=== PATIENT | female | born 1935 | race Caucasian/White ===

== ENCOUNTER 2016-06-03 11:27 | Inpatient (IN) | payer MEDICARE, BC ==
[2016-06-03 11:53] LABS: AUTOMATED BASOPHIL 0.2 % (0-2); AUTOMATED LYMPH 15.7 % (17-44); AUTOMATED NEUTROPHIL 79.1 % (45-76); MPV 7.3 fL (7.4-10.4)
[2016-06-03 12:08] LABS: PARTIAL THROMB. TIME 26.6 SEC (22-35); PT-INR 1.1
[2016-06-03 12:22] LABS: BLOOD UREA NITROGEN 10 MG/DL (7-17); CALCULATED OSMOLALITY 276 MOs/Kg (270-290); CHLORIDE 105 mEq/L (98-107); GLUCOSE 141 MG/DL (70-99); SODIUM LEVEL 143 mEq/L (137-146); TOTAL PROTEIN 7.5 G/DL (6.3-8.2)
--- NOTE | 2016-06-03 12:29 | DIRPT ---
CLINICAL DATA: Shortness of breath for 2 days and cough EXAM: CHEST 2 VIEW COMPARISON: Chest radiograph and chest CT December 04, 2011 FINDINGS: There is slight scarring in the right base region. There is no edema or consolidation. Heart is borderline enlarged with pulmonary vascularity within normal limits. There is a small hiatal hernia. There is atherosclerotic calcification throughout the aorta. There is degenerative change in the thoracic spine. IMPRESSION: No edema or consolidation. Slight scarring right base. Stable cardiac prominence. Hiatal hernia present. Electronically Signed By: Nawaf Marrufo III, M.D. On: 06/03/2016 12:27
--- NOTE | 2016-06-03 13:56 | EDPRACDOC ---
- General Information Chief Complaint: Dyspnea/Resp distress Stated Complaint: SENT FROM URGENT CARE - [facility] Time Seen by Provider: 06/03/16 13:55 Information Source: Patient Home Medications: Home Medications Azithromycin [Zithromax] 250 mg PO DAILY #6 tablet 06/03/16 CloNIDine (Antihypertensive) [Catapres-Tts] 1 patch TOP WEEKLY 06/03/16 Dexlansoprazole [Dexilant] 60 mg PO DAILY 06/03/16 Folic Acid/Mv,Fe,Other Min [One Daily For Women Tablet] 1 tab PO DAILY 06/03/16 Ipratropium/Albuterol Sulfate [Combivent Respimat Inhal [place]] 4 gm IH QID PRN # 2 aer.w.adap 06/03/16 Prednisone [Deltasone, Orasone] 20 mg PO DAILY #12 tab 06/03/16 Allergies/Adverse Reactions: Allergies Allergy/AdvReac Type Severity Reaction Status Date / Time Sulfa (Sulfonamide Allergy Intermediate Hives* Verified 06/03/16 11:38 Antibiotics) [Sulfa(Sulfonamide Antibiotics)] Penicillins Allergy Hives* Verified 06/03/16 11:38 - History of Present Illness Shortness of Breath: Moderate Relevant History: Reports: None Cough: Reports: Non-productive Rhinorrhea: Reports: Clear SOB Worsens with: Reports: Coughing, Lying Flat SOB Improves with: Reports: Sitting up, Rest Associated Signs and symptoms: Reports: Fever (LOW GRADE), Other (EDEMA). Denies: Nausea, Vomiting, Diarrhea ED Past Medical History - History Reviewed Yes Nurses notes reviewed and agree except as marked - Patient Medical History Cardiac History: Reports: Hypertension Psychological History: Denies: Depression Surgical History: Reports: Appendectomy, Tonsillectomy/Adnoidectomy - Social Medical History Smoking Status: Never smoker ETOH: None Substance Abuse: None Lives In: Home EDM Review of Systems - Review of Systems ROS Negative Except as Marked: Yes All systems reviewed and were negative except as marked - Physical Exam Constitutional: Alert (Awake), No apparent distress Oriented to: Time, Person, Place Last recorded Vital Signs: Last Vital Signs Temp 99.8 F 06/03/16 13:10 Pulse 99 06/03/16 13:52 Resp 20 06/03/16 13:52 BP 201/93 H 06/03/16 13:52 Pulse Ox 93 06/03/16 13:52 Oxygen Pulse Oxygen Saturation 93 O2 Device Room Air Oxygen Flow Rate Fraction of Inspired Oxygen ( FIO2) - HEENT Head: Normal ( normocephalic) Eye Exam: Normal (PERRL, EOMI, Sclera white) Oropharynx: Normal (Pharynx:Moist without exudate,Gums-no swelling) Tympanic Membrane: Normal ENT EAC: Normal TMJ: Normal Nose: No Symptoms Reported (septum midline) Neck: Normal (FROM, trachea at midline) - Respiratory/Cardiovascular Respiratory: Diminished, Rhonchi, Tachypnea (MILD). negative: Accessory Muscle Use, Retractions Cardiovascular: Normal (RRR without murmur, gallop or rub) - GI Auscultation: Normal (NABS) Palpation: Normal (Soft,No rebound or guarding, non distended) Tenderness: Non tender Taylor's Sign: Negative - Musculoskeletal Back: Normal (Non-Tender) Extremities: Pedal Edema (2+). negative: Clubbing, Cyanosis - Integumentary Skin: Normal, Warm, Dry Lymphatics: Normal (no adenopathy) - Neurologic Memory Impaired: Normal Motor Function: Normal (Normal tone, Pulses 2+ No cyanosis or edema, FROM) Cranial Nerve: Normal (CN II-X11 intact sensation, strength 5/5) Cerebellar: Normal Mood Description: Normal Thought: Coherent Perception: Normal ED SOB MDM - Re-evaluation Re-evaluation 3 Re-evaluation Time: 17:28 Re-evaluation: VERY COMFORTABLE, SO2 STILL 88-89% RA. Re-evaluation 4 Re-evaluation Time: 17:37 (STILL WHEEZING BUT FAIRLY COMFORTABLE,) Re-evaluation: INPATIENT VERSUS OUTPATIENT MANAGEMENT DISCUSSED WITH PATIENT AND HER , RISKS BENEFITS AND ALTERNATIVES WERE DISCUSSED THEY HAVE ELECTED FOR OUTPATIENT MANAGEMENT. WILL ARRANGE FOR HOME OXYGENATION. Temperature: 99.8 F (06/03/16 13:10) HR: 105 (06/03/16 17:22)RR: 20 (06/03/16 17 :22) BP: 156/77 (06/03/16 17:22)Pulse Ox: 86 (06/03/16 17:22) ROOM AIR PULSE OX BY MY EXAMINATION IS 86% ROOM AIR. - Results Result Diagrams: 06/03/16 11:40 06/03/16 11:40 Results: WBC 17.4 xk/uL (3.8-10.8) H 06/03/16 11:40 RBC 5.67 xM/uL (4.20-5.40) H 06/03/16 11:40 Hgb 15.5 g/dL (12.0-16.0) 06/03/16 11:40 Hct 47.4 % (36-47) H 06/03/16 11:40 MCV 84 fL (81-99) 06/03/16 11:40 MCH 27.4 pg (27-32) 06/03/16 11:40 MCHC 32.8 g/dl (33-36) L 06/03/16 11:40 RDW 14.6 % (11.5-14.5) H 06/03/16 11:40 Plt Count 235 xk/uL (130-400) 06/03/16 11:40 MPV 7.3 fL (7.4-10.4) L 06/03/16 11:40 Neut % (Auto) 79.1 % (45-76) H 06/03/16 11:40 Lymph % (Auto) 15.7 % (17-44) L 06/03/16 11:40 [place] % (Auto) 5.0 % (3-10) 06/03/16 11:40 Eos % (Auto) 0.0 % (0-5) 06/03/16 11:40 Baso % (Auto) 0.2 % (0-2) 06/03/16 11:40 Absolute Neuts (auto) 13.75 xk/uL (1.7-8.2) H 06/03/16 11:40 Absolute Lymphs (auto) 2.61 xk/uL (0.65-4.75) 06/03/16 11:40 PT 11.5 SEC (9.2-11.2) H 06/03/16 11:40 INR 1.1 06/03/16 11:40 APTT 26.6 SEC (22-35) 06/03/16 11:40 Sodium 143 mEq/L (137-146) 06/03/16 11:40 Potassium 4.0 mEq/L (3.5-5.1) 06/03/16 11:40 Chloride 105 mEq/L (98-107) 06/03/16 11:40 Carbon Dioxide 22 mMOL/L (22-33) 06/03/16 11:40 Anion Gap 20 mEq/L (8-16) H 06/03/16 11:40 BUN 10 MG/DL (7-17) 06/03/16 11:40 Creatinine 0.60 MG/DL (0.52-1.04) 06/03/16 11:40 Estimated GFR (MDRD) > 60 mL/min (>=60) 06/03/16 11:40 Glucose 141 MG/DL (70-99) H 06/03/16 11:40 Calculated Osmolality 276 MOs/Kg (270-290) 06/03/16 11:40 Calcium 10.0 MG/DL (8.4-10.2) 06/03/16 11:40 Total Bilirubin 0.9 MG/DL (0.2-1.3) 06/03/16 11:40 AST 20 IU/L (14-36) 06/03/16 11:40 ALT 33 IU/L (9-52) 06/03/16 11:40 Alkaline Phosphatase 99 IU/L (55-165) 06/03/16 11:40 Troponin I < 0.01 ng/mL (<.04) 06/03/16 11:40 Bbu-H-Ptnpwbkrysk Pept 469 pg/mL (0-1800) 06/03/16 11:40 Total Protein 7.5 G/DL (6.3-8.2) 06/03/16 11:40 Albumin 4.4 G/DL (3.5-5.0) 06/03/16 11:40 Lab Results 06/03/16 06/03/16 06/03/16 11:40 11:40 11:40 WBC 17.4 H RBC 5.67 H Hgb 15.5 Hct 47.4 H MCV 84 MCH 27.4 MCHC 32.8 L RDW 14.6 H Plt Count 235 MPV 7.3 L Neut % (Auto) 79.1 H Lymph % (Auto) 15.7 L [place] % (Auto) 5.0 Eos % (Auto) 0.0 Baso % (Auto) 0.2 Absolute Neuts (auto) 13.75 H Absolute Lymphs (auto) 2.61 PT 11.5 H INR 1.1 APTT 26.6 Sodium 143 Potassium 4.0 Chloride 105 Carbon Dioxide 22 Anion Gap 20 H BUN 10 Creatinine 0.60 Estimated GFR (MDRD) > 60 Glucose 141 H Calculated Osmolality 276 Calcium 10.0 Total Bilirubin 0.9 AST 20 ALT 33 Alkaline Phosphatase 99 Troponin I < 0.01 [id number]-[id number] Pept 469 Total Protein 7.5 Albumin 4.4 - EKG EKG #1 EKG Time: 11:44 -: Yes EKG interpreted by me Rate: bpm: 115 [place]: Normal Rhythm: ST Block: None Hypertrophy: None ST: Nonsp - Diagnostic Imaging Chest Image interpreted by: Radiologist Diagnostic Imaging Comments: Patient Name: MICHAEL FINK LOC: ED : 1935 AGE: 81 Order Date:06/03/16 Date of Service:08/15 Report # [id number] Ord Physician: Martha Felton MD Exam # [id number] Emergency Physician: Provider,ER Exam(s): [id number] RAD/DG CHEST 2V CLINICAL DATA: Shortness of breath for 2 days and cough EXAM: CHEST 2 VIEW COMPARISON: Chest radiograph and chest CT December 04, 2011 FINDINGS: There is slight scarring in the right base region. There is no edema or consolidation. Heart is borderline enlarged with pulmonary vascularity within normal limits. There is a small hiatal hernia. There is atherosclerotic calcification throughout the aorta. There is degenerative change in the thoracic spine. IMPRESSION: No edema or consolidation. Slight scarring right base. Stable cardiac prominence. Hiatal hernia present. Electronically Signed By: Nawaf Marrufo III, M.D. On: 06/03/2016 12:27 Electronically Signed By: Nawaf Marrufo III, MD Electronically Signed Date/Time: [id number] Dictate Date/Time: 06/03/16 1225 Technologist: Irene Crum Transcribed By: Lia Transcribed Date/Time: 06/03/16 1227 - Departure Disposition: Home Final Diagnosis: Acute bronchitis, Acute exacerbation of chronic obstructive airways disease, Hypoxia Hypertension Qualifiers: Hypertension type: other secondary hypertension Qualified Code(s): I15.8 - Other secondary hypertension Instructions: Chronic Hypertension (ED), Acute Bronchitis (ED), COPD (Chronic Obstructive Pulmonary Disease) (ED) Education/Counseling Given To: Patient, Family Member Education/Counseling Given Regarding: Diagnosis, Treatment, Prognosis Referrals: Piyush Pabon MD [Primary Care Provider] - One Week Prescriptions: Azithromycin [Zithromax] 250 mg PO DAILY #6 tablet Ipratropium/Albuterol Sulfate [Combivent Respimat Inhal [place]] 4 gm IH QID PRN # 2 aer.w.adap PRN Reason: Shortness Of Breath Prednisone [Deltasone, Orasone] 20 mg PO DAILY #12 tab
[2016-06-03] MEDS ORDERED: ENALAPRILAT 1.25 MG/ML VIAL IV ONE (13:58)
[2016-06-03] MEDS ORDERED: FUROSEMIDE 40 MG/4 ML VIAL IV ONE (14:01)
[2016-06-03] MEDS ORDERED: NITROGLYCERINE 2 % OINTMENT PACK TOP ONE (14:01)
[2016-06-03] MEDS ORDERED: Albuterol/Ipratropium Neb 3 ML NEB NEB ONE (16:18)
[2016-06-03] MEDS ORDERED: METHYLPREDNISOLONE SOD SUCC IV ONE (16:18)
[2016-06-03] MEDS ORDERED: NS IV ONE (16:18)
[2016-06-03 17:34] LABS: ABG Draw Site Left Radial; ABG Draw Tech SI; ALLEN'S TEST PASS; BEb 1.7 (+/- 2); TCO2 25.4 MMOL/L (23-27)
[2016-06-03] MEDS ORDERED: ALBUTEROL 6.7 GM MDI INH ONE (17:40)
[2016-06-03] MEDS ORDERED: AZITHROMYCIN 500 MG in D5W 250 ML IV ONE (18:21)
[2016-06-03] MEDS ORDERED: CEFTRIAXONE 1 GM in D5W 100 ML IV ONE (18:21)
[2016-06-03] MEDS ORDERED: Pharmacy Review for Metformin - IV Contrast Given SCH (19:00)
--- NOTE | 2016-06-03 19:03 | DIRPT ---
CLINICAL DATA: Dyspnea EXAM: CT ANGIOGRAPHY CHEST WITH CONTRAST TECHNIQUE: Multidetector CT imaging of the chest was performed using the standard protocol during bolus administration of intravenous contrast. Multiplanar CT image reconstructions and MIPs were obtained to evaluate the vascular anatomy. CONTRAST: 80 cc Isovue 370 COMPARISON: 12/04/2011 FINDINGS: There are no filling defects in the pulmonary arterial tree to suggest acute pulmonary thromboembolism. Atherosclerotic changes throughout the thoracic aorta are noted. Minimal coronary artery calcification. No abnormal mediastinal adenopathy. No pericardial effusion. There is prominent soft tissue surrounding a right lower lobe pulmonary artery branch on image 52 of series 3. The encompassing soft tissue measures up to 1.7 cm. Similar mildly prominent lymph nodes are present inferior to the left hilum on image 47. These findings are not significantly changed compare with the prior study. No pneumothorax. No pleural effusion. Low lung volumes with dependent atelectasis bilaterally. There are more confluent opacities at the posterior left lung base worrisome for patchy airspace disease. Moderate-sized hiatal hernia is noted. No vertebral compression deformity. Review of the MIP images confirms the above findings. IMPRESSION: No evidence of acute pulmonary thromboembolism. Patchy airspace opacities at the left lung base worrisome for an inflammatory process Mildly prominent lymph nodes in both inferior hilar regions are stable. Stability over 4 years supports benign etiology. Stable moderate hiatal hernia. Electronically Signed By: Sarmad Sun M.D. On: 06/03/2016 19:00
[2016-06-03] MEDS ORDERED: Albuterol/Ipratropium Neb 3 ML NEB NEB PRN (19:47)
[2016-06-03] MEDS ORDERED: ONDANSETRON HCL 4 MG/2 ML VIAL IV PRN (19:47)
--- NOTE | 2016-06-03 19:47 | HISTPHYS ---
- Chief Complaint Shortness of breath and fever - History of Present Illness This is a pleasant 81-year-old female who was being admitted to the hospital due to left lower lobe community-acquired pneumonia. She tells me that he has had shortness of breath for the last 5 or 6 days, which started with a sore throat that time. Weakness and shortness of breath has progressed, she started to develop cough a couple of days ago, it is productive of thick discolored sputum. Denies any chest pain. Subjective fevers and chills at home. No associated nausea, vomiting or abdominal pain. No diarrhea. No therapies prior to arrival. No aggravating or alleviating factors. - Medical History Cardiac History: Reports: Hypertension Psychological History: Denies: Depression - Surgical History Reports: Appendectomy, Tonsillectomy/Adnoidectomy - Medictions/Allergies Allergies Sulfa (Sulfonamide Antibiotics) [Sulfa(Sulfonamide Antibiotics)] Allergy ( Intermediate, Verified 06/03/16 11:38) Hives* Penicillins Allergy (Verified 06/03/16 11:38) Hives* Home Medications Azithromycin [Zithromax] 250 mg PO DAILY #6 tablet 06/03/16 CloNIDine (Antihypertensive) [Catapres-Tts] 1 patch TOP WEEKLY 06/03/16 Dexlansoprazole [Dexilant] 60 mg PO DAILY 06/03/16 Folic Acid/Mv,Fe,Other Min [One Daily For Women Tablet] 1 tab PO DAILY 06/03/16 Ipratropium/Albuterol Sulfate [Combivent Respimat Inhal [place]] 4 gm IH QID PRN # 2 aer.w.adap 06/03/16 Prednisone [Deltasone, Orasone] 20 mg PO DAILY #12 tab 06/03/16 - Social History Smoking Status: Never smoker - Review of Systems Yes All systems reviewed and were negative except as marked - Physical Exam Vital Signs: Initial Vitals Temperature 99.1 F 06/03/16 11:37 Pulse Rate 118 06/03/16 11:37 Respiratory Rate 22 06/03/16 11:37 Blood Pressure 203/100 H 06/03/16 11:37 Pulse Oxygen Saturation 96 06/03/16 11:37 Constitutional: Distress Oriented to: Time, Person, Place Exam: Tired appearing woman lying in a stretcher in the emergency department. - HEENT Head: Normal (normocephalic,atraumatic, trachea midline) Eye: Normal (EOMI, Sclera white) Oropharynx: Normal (moist) Nose: No Symptoms Reported (without discharge or bleeding) Respiratory: Diminished, Rales, Rhonchi. negative: Tachypnea, Wheezes Cardiovascular: Normal - GI Palpation: Normal (soft, non distended and nontender) - Musculoskeletal Extremities: Normal (normal tone, no cyanosis or edema) - Integumentary Skin: Normal (no rashes or lesions) - Focused CV Perfusion Exam Vital Signs: Last Vital Signs Temp 99.8 F 06/03/16 13:10 Pulse 105 06/03/16 17:22 Resp 20 06/03/16 17:22 BP 156/77 06/03/16 17:22 Pulse Ox 87 L 06/03/16 17:22 - Lab Results Laboratory Tests 06/03/16 06/03/16 06/03/16 11:40 11:40 17:30 WBC 17.4 H Hgb 15.5 pH 7.490 H pCO2 32.0 L pO2 58.0 L Potassium 4.0 BUN 10 Creatinine 0.60 - Diagnostic Findings CT CHEST: No evidence of acute pulmonary thromboembolism. Patchy airspace opacities at the left lung base worrisome for an inflammatory process Mildly prominent lymph nodes in both inferior hilar regions are stable. Stability over 4 years supports benign etiology. Stable moderate hiatal hernia. - Assessment (1) LLL pneumonia J18.1 - LOBAR PNEUMONIA, UNSPECIFIED ORGANISM Acute Community-acquired pneumonia. With hypoxia, significant cough and left lower lobe consolidation seen on CT scan of the chest this evening. Admit to the hospital to monitored floor. Treat with empiric IV azithromycin and Rocephin. Respiratory therapy has been consulted, supplemental oxygen as needed. Keep O2 sats above 90% in this woman with COPD. (2) Acute exacerbation of chronic obstructive airways disease J44.1 - CHRONIC OBSTRUCTIVE PULMONARY DISEASE W (ACUTE) EXACERBATION Acute Scheduled duo nebs and bronchodilators. P.r.n. albuterol. Steroid taper. (3) Hypertension I10 - ESSENTIAL (PRIMARY) HYPERTENSION Acute Qualifiers: Hypertension type: other secondary hypertension Qualified Code(s): I15.8 - Other secondary hypertension Continue home medications. Hypertensive, will add IV labetalol p.r.n. SBP over 160. (4) Hypoxia R09.02 - HYPOXEMIA Acute Due to community-acquired pneumonia and COPD. Treating as above.
[2016-06-03] MEDS ORDERED: LABETALOL 20 MG/4 ML SYRINGE IV PRN (19:49)
[2016-06-03] MEDS: ACETAMINOPHEN 325 MG/TAB TABLET PO PRN (21:50)
[2016-06-03] MEDS: ENOXAPARIN 40 MG/0.4 ML PFS SQ SCH (22:21)
[2016-06-03] MEDS ORDERED: Vaccine Screening Complete SCH (23:00)
[2016-06-04 05:32] LABS: MPV 7.9 fL (7.4-10.4)
[2016-06-04] MEDS: PANTOPRAZOLE 40 MG TAB PO SCH (05:37)
[2016-06-04 05:50] LABS: BLOOD UREA NITROGEN 12 MG/DL (7-17); CALCIUM 9.3 MG/DL (8.4-10.2); CALCULATED OSMOLALITY 275 MOs/Kg (270-290); CHLORIDE 103 mEq/L (98-107); GLUCOSE 176 MG/DL (70-99); SODIUM LEVEL 141 mEq/L (137-146)
[2016-06-04] MEDS ORDERED: MV FE OTHER MIN PO SCH (09:00)
[2016-06-04] MEDS ORDERED: Non-Formulary Medication ITEM (Dexlansoprazole [Dexilant] 60 MG) PO SCH (09:00)
[2016-06-04] MEDS ORDERED: [UNRECOGNIZED DRUG - OTHER] PO SCH (09:00)
[2016-06-04] MEDS ORDERED: FOLIC ACID PO SCH (09:00)
[2016-06-04] MEDS: VITAMINS, MULTIPLE CAP PO SCH (11:05)
[2016-06-04] MEDS ORDERED: CLONIDINE 0.1 MG TOP SCH (12:30)
[2016-06-04] MEDS ORDERED: DEXTROSE 25 GM/50 ML PFS IV PRN (15:20)
[2016-06-04] MEDS ORDERED: GLUCOSE (ORAL GEL) 15 GM TUBE PO PRN (15:20)
[2016-06-04] MEDS ORDERED: GLUCAGON 1 MG VIAL SQ PRN (15:20)
--- NOTE | 2016-06-04 15:23 | GENMEDPROG ---
Subjective Note: Patient in chair responsive follows commands, still short of breath with audible rhonchi some wheezes. Coughing producing fair amount thick brownish sputum no hemoptysis. Generally weak and tired. Notes Reviewed: Yes Events from last night noted and discussed with Clinical Staff Current Medication List: Reviewed Currently: Reports: Cough, Wheezing, PUCKETT, SOB, Sputum, Reflux Sx DVT Prophylaxis: Yes - Physical Examination Vital Signs and I&O: Last Vital Signs Temp 97.7 F 06/04/16 12:00 Pulse 85 06/04/16 15:17 Resp 18 06/04/16 12:00 BP 140/70 06/04/16 12:00 Pulse Ox 92 06/04/16 12:00 Oxygen Pulse Oxygen Saturation 92 O2 Device Nasal Cannula Oxygen Flow Rate 2 Fraction of Inspired Oxygen ( FIO2) Intake & Output 06/01/16 06/02/16 06/03/16 06/04/16 23:59 23:59 23:59 23:59 Intake Total 600 480 Output Total 500 550 Balance 100 -70 Patient's weight 61.144 kg 61.167 kg General: Alert, Oriented x3, Cooperative, No acute distress HEENT: Normal, PERRLA, EOMI, Anicteric Sclera Neck: Non-tender, Normal inspection, Limited range of motion Lymphatics: Normal Respiratory: Diminished, Rales, Rhonchi. negative: Tachypnea, Wheezes Cardiovascular: Regular rate, Normal S1, Normal S2, Murmurs GI: Normal bowel sounds, Soft, Non tender, No hepatospenomegaly, No masses Extremities/Musculoskeletal: Normal pulses, Edema, DJD Skin: Warm,Dry and Intact, No rashes, No breakdown, No significant lesion Neurological: Normal speech, Cranial nerves 3-12 NL Psych/Mental Status: Anxious Lab/DI/Studies Reviewed: Last Vital Signs Temp 97.7 F 06/04/16 12:00 Pulse 85 06/04/16 15:17 Resp 06/04/16 12:00 BP 140/70 06/04/16 12:00 Pulse Ox 92 06/04/16 12:00 06/04/16 05:00 06/04/16 05:00 Abnormal Lab Results 06/03/16 06/04/16 06/04/16 17:30 05:00 05:00 WBC 12.4 H pH 7.490 H pCO2 32.0 L pO2 58.0 L Glucose 176 H Last Vital Signs Temp 97.7 F 06/04/16 12:00 Pulse 85 06/04/16 15:17 Resp 18 06/04/16 12:00 BP 140/70 06/04/16 12:00 Pulse Ox 92 06/04/16 12:00 - Assessment (1) Respiratory insufficiency Acute R06.89 - OTHER ABNORMALITIES OF BREATHING Comment/Plan: Continue O2 nebs and pulmonary toilet, monitor pulmonary status (2) Acute exacerbation of chronic obstructive airways disease Acute J44.1 - CHRONIC OBSTRUCTIVE PULMONARY DISEASE W (ACUTE) EXACERBATION Comment/Plan: Continue nebulized bronchodilators, continue IV steroids. (3) Hypertension Acute I10 - ESSENTIAL (PRIMARY) HYPERTENSION Qualifiers: Hypertension type: other secondary hypertension Qualified Code(s): I15.8 - Other secondary hypertension Comment/Plan: BP under control. Continue home meds. (4) LLL pneumonia Acute J18.1 - LOBAR PNEUMONIA, UNSPECIFIED ORGANISM Comment/Plan: Continue IV antibiotics in the form of Rocephin and Zithromax.. Monitor cultures. (5) GERD (gastroesophageal reflux disease) Acute K21.9 - GASTRO-ESOPHAGEAL REFLUX DISEASE WITHOUT ESOPHAGITIS Qualifiers: Esophagitis presence: without esophagitis Qualified Code(s): K21.9 - Gastro -esophageal reflux disease without esophagitis Comment/Plan: Continue PPI Case Care Discussed with: Patient, Nursing Staff, Respiratory Therapy, Mass Communications Professor Education/Counseling Given To: Patient Education/Counseling Given Regarding: Diagnosis, Treatment, Prognosis, Follow Up Total Time: 50 min . Critical Care: No Code: 92417 (12+)
[2016-06-04] MEDS: ENOXAPARIN 40 MG/0.4 ML PFS SQ SCH (16:45)
[2016-06-04] MEDS: METHYLPREDNISOLONE 125 MG/2 ML VIAL IV SCH ×2 (16:45→21:18)
[2016-06-04] MEDS: CEFTRIAXONE 1 GM in D5W 100 ML IV SCH (16:45)
[2016-06-04] MEDS: REGULAR INSULIN 100 UNITS/ML - 3 ML VIAL SQ SCH ×2 (16:59→23:57)
[2016-06-04] MEDS: GUAIFENESIN 600 MG LA TAB PO SCH (19:51)
[2016-06-04] MEDS: AZITHROMYCIN 500 MG in D5W 250 ML IV SCH (19:51)
[2016-06-04] MEDS: Albuterol/Ipratropium Neb 3 ML NEB NEB SCH (19:57)
[2016-06-05] MEDS: Albuterol/Ipratropium Neb 3 ML NEB NEB SCH ×4 (02:12→20:35)
[2016-06-05 04:53] VITALS: BMI 24.5
[2016-06-05] MEDS: PANTOPRAZOLE 40 MG TAB PO SCH (05:07)
[2016-06-05] MEDS: METHYLPREDNISOLONE 125 MG/2 ML VIAL IV SCH ×2 (05:07→08:37)
[2016-06-05] MEDS: REGULAR INSULIN 100 UNITS/ML - 3 ML VIAL SQ SCH ×3 (05:14→16:50)
[2016-06-05 05:43] LABS: BLOOD UREA NITROGEN 19 MG/DL (7-17); CALCIUM 9.8 MG/DL (8.4-10.2); CALCULATED OSMOLALITY 282 MOs/Kg (270-290); CHLORIDE 107 mEq/L (98-107); GLUCOSE 144 MG/DL (70-99); SODIUM LEVEL 144 mEq/L (137-146)
[2016-06-05] MEDS: GUAIFENESIN 600 MG LA TAB PO SCH ×2 (08:37→21:41)
[2016-06-05] MEDS: VITAMINS, MULTIPLE CAP PO SCH (08:37)
[2016-06-05] MEDS ORDERED: hydrALAZINE 20 MG/ML VIAL IV PRN (09:44)
--- NOTE | 2016-06-05 09:48 | GENMEDPROG ---
Subjective Note: Patient in bed responsive follows commands, still coughing producing fair amount thick brownish sputum. denies any hemoptysis. Still weak tired and fatigued. Overall breathing better. Notes Reviewed: Yes Events from last night noted and discussed with Clinical Staff Current Medication List: Reviewed Currently: Reports: Cough, Wheezing, PUCKETT, SOB, Sputum, Reflux Sx DVT Prophylaxis: Yes - Physical Examination Vital Signs and I&O: Last Vital Signs Temp 97.6 F 06/05/16 07:50 Pulse 78 06/05/16 07:50 Resp 18 06/05/16 07:50 BP 169/83 06/05/16 07:50 Pulse Ox 98 06/05/16 08:52 Oxygen Pulse Oxygen Saturation 98 O2 Device Nasal Cannula Oxygen Flow Rate 2 Fraction of Inspired Oxygen ( FIO2) Intake & Output 06/02/16 06/03/16 06/04/16 06/05/16 23:59 23:59 23:59 23:59 Intake Total 600 720 Output Total 500 1350 500 Balance 100 -630 -500 Patient's weight 61.144 kg 61.167 kg 60.781 kg General: Alert, Oriented x3, Cooperative, No acute distress HEENT: Normal, PERRLA, EOMI, Anicteric Sclera Neck: Non-tender, Normal inspection, Limited range of motion Lymphatics: Normal Respiratory: Diminished, Rales, Rhonchi. negative: Tachypnea, Wheezes Cardiovascular: Regular rate, Normal S1, Normal S2, Murmurs GI: Normal bowel sounds, Soft, Non tender, No hepatospenomegaly, No masses Extremities/Musculoskeletal: Normal pulses, Edema, DJD Skin: Warm,Dry and Intact, No rashes, No breakdown, No significant lesion Neurological: Normal speech, Cranial nerves 3-12 NL Psych/Mental Status: Anxious Lab/DI/Studies Reviewed: Allergies Sulfa (Sulfonamide Antibiotics) [Sulfa(Sulfonamide Antibiotics)] Allergy ( Intermediate, Verified 06/03/16 11:38) Hives* Penicillins Allergy (Verified 06/03/16 11:38) Hives* 06/05/16 05:05 06/05/16 05:05 Abnormal Lab Results 06/04/16 06/04/16 06/04/16 16:27 20:41 23:55 WBC MCHC BUN Creatinine Glucose POC Capillary Glucose 225 H 256 H 214 H 06/05/16 06/05/16 06/05/16 05:05 05:05 05:14 WBC 17.9 H MCHC 32.9 L BUN 19 H Creatinine 0.50 L Glucose 144 H POC Capillary Glucose 130 H Last Vital Signs Temp 97.6 F 06/05/16 07:50 Pulse 78 06/05/16 07:50 Resp 18 06/05/16 07:50 BP 169/83 06/05/16 07:50 Pulse Ox 98 06/05/16 08:52 - Assessment (1) LLL pneumonia Acute J18.1 - LOBAR PNEUMONIA, UNSPECIFIED ORGANISM Comment/Plan: Continue IV antibiotics in the form of Rocephin and Zithromax.. Monitor cultures. Continue aggressive pulmonary toilet and mucolytics (2) Respiratory insufficiency Acute R06.89 - OTHER ABNORMALITIES OF BREATHING Comment/Plan: Continue O2 nebs and pulmonary toilet, monitor pulmonary status. Will wean off O2 as tolerated (3) Acute exacerbation of chronic obstructive airways disease Acute J44.1 - CHRONIC OBSTRUCTIVE PULMONARY DISEASE W (ACUTE) EXACERBATION Comment/Plan: Continue nebulized bronchodilators, continue IV steroids. Increase activity, wean off IV steroids (4) Hypertension Acute I10 - ESSENTIAL (PRIMARY) HYPERTENSION Qualifiers: Hypertension type: other secondary hypertension Qualified Code(s): I15.8 - Other secondary hypertension Comment/Plan: BP under control. Continue home meds. (5) GERD (gastroesophageal reflux disease) Acute K21.9 - GASTRO-ESOPHAGEAL REFLUX DISEASE WITHOUT ESOPHAGITIS Qualifiers: Esophagitis presence: without esophagitis Qualified Code(s): K21.9 - Gastro -esophageal reflux disease without esophagitis Comment/Plan: Continue PPI Case Care Discussed with: Patient, Family, Nursing Staff, Respiratory Therapy, Other Education/Counseling Given To: Patient Education/Counseling Given Regarding: Diagnosis, Treatment, Prognosis, Follow Up Total Time: 45 min . Critical Care: No Code: 75989 (12+)
[2016-06-05] MEDS: METHYLPREDNISOLONE 40 MG/1 ML VIAL IV SCH ×2 (13:56→20:15)
[2016-06-05] MEDS: ENOXAPARIN 40 MG/0.4 ML PFS SQ SCH (16:51)
[2016-06-05] MEDS: CEFTRIAXONE 1 GM in D5W 100 ML IV SCH (16:51)
[2016-06-05] MEDS: AZITHROMYCIN 500 MG in D5W 250 ML IV SCH (20:15)
[2016-06-06] MEDS: REGULAR INSULIN 100 UNITS/ML - 3 ML VIAL SQ SCH ×3 (00:13→12:37)
[2016-06-06] MEDS: METHYLPREDNISOLONE 40 MG/1 ML VIAL IV SCH ×2 (02:25→09:28)
[2016-06-06] MEDS: Albuterol/Ipratropium Neb 3 ML NEB NEB SCH ×3 (02:31→13:20)
[2016-06-06] MEDS: PANTOPRAZOLE 40 MG TAB PO SCH (05:54)
[2016-06-06] MEDS: ACETAMINOPHEN 325 MG/TAB TABLET PO PRN ×2 (05:54→12:28)
[2016-06-06 07:07] LABS: BLOOD UREA NITROGEN 16 MG/DL (7-17); CALCIUM 9.9 MG/DL (8.4-10.2); CALCULATED OSMOLALITY 281 MOs/Kg (270-290); CHLORIDE 107 mEq/L (98-107); GLUCOSE 146 MG/DL (70-99); SODIUM LEVEL 144 mEq/L (137-146)
[2016-06-06] MEDS: GUAIFENESIN 600 MG LA TAB PO SCH (09:28)
[2016-06-06] MEDS: VITAMINS, MULTIPLE CAP PO SCH (12:25)
[2016-06-06 13:23] VITALS: BP 159/75; PULSE 87; TEMP 97.6
--- NOTE | 2016-06-06 15:27 | PCM.DCS92 ---
- Final/Secondary Discharge Diagnosis (1) LLL pneumonia Acute J18.1 - LOBAR PNEUMONIA, UNSPECIFIED ORGANISM Present on Admission: Yes Comment: Clinically improved and stable for discharge on p.o. antibiotic. (2) Respiratory insufficiency Resolved R06.89 - OTHER ABNORMALITIES OF BREATHING Present on Admission: Yes Comment: Doing fairly well off oxygen (3) Acute exacerbation of chronic obstructive airways disease Resolved J44.1 - CHRONIC OBSTRUCTIVE PULMONARY DISEASE W (ACUTE) EXACERBATION Present on Admission: Yes Comment: Continue finish course of prednisone (4) Hypertension Chronic I10 - ESSENTIAL (PRIMARY) HYPERTENSION Present on Admission: Yes other secondary hypertension I15.8 - Other secondary hypertension Comment: BP under control. Continue home meds. (5) GERD (gastroesophageal reflux disease) Chronic K21.9 - GASTRO-ESOPHAGEAL REFLUX DISEASE WITHOUT ESOPHAGITIS Present on Admission: Yes without esophagitis K21.9 - Gastro-esophageal reflux disease without esophagitis Comment: Continue PPI Discharge Disposition: Home Discharge Condition: Improved Cognitive Discharge Status: Unimpaired Fuctional Discharge Status: Independent Physician Follow up/Referrals: Piyush Pabon MD [Primary Care Provider] - One Week New Prescriptions: Ipratropium/Albuterol Sulfate [Combivent Respimat Inhal Bitely] 4 gm IH QID PRN # 2 aer.w.adap PRN Reason: Shortness Of Breath Levofloxacin [Levaquin] 750 mg PO DAILY #7 tablet Guaifenesin [Mucinex] 1,200 mg PO BID #20 tbmp.12hr Prednisone 10 mg PO DAILY #30 tab.ds.pk Levalbuterol Tartrate [Xopenex Hfa] 200 puff IH Q6 #1 hfa.aer.ad O2 Device: Room Air Diet at Discharge: Heart Healthy, Low Salt, High Fiber Activity: No Restrictions, As Tolerated Call Office For: Worsening Symptoms, Fever over 101 F Discontinue use of:: Alcohol, All Illegal Substances, All Types of Tobacco - DC Summary Notes Hospital Course Note:: Discharge summary on patient named MICHAEL FINK admitted to [facility] on 06/03/16 by Trevor Pfeiffer MD. Date of discharge is []. Patient was initially brought to emergency room on June 03 for evaluation of progressive worsening difficulties breathing cough productive thick yellowish greenish phlegm, chest tightness and wheezes low-grade fevers and pleuritic chest pain. Please refer the admission for further details. Upon arrival in ED patient was found to be in moderate respiratory distress hypoxic tachypneic and tachycardic her PaO2 was 58. CT chest was obtained which showed no evidence of PE but patchy airspace opacities at left lung base worrisome for pneumonia. Patient is admitted to general medical floor treatment of IV antibiotics in the form of Rocephin and Zithromax was instituted. Given significant bronchospasm she required IV steroids and nebulized bronchodilators. Her pulmonary status has very slowly but progressively improved and stabilized she was gradually weaned off the oxygen. Outpatient regimen for chronic medical conditions was continued and during hospital stay patient has remained hemodynamically stable. Her activity level was gradually advanced and by time of discharge was able to ambulate with minimal exertional dyspnea. Labs were monitored closely and remained within normal limits. It was felt that by June 06 patient has reached maximum benefit of inpatient therapy and in clinically improved condition she has been discharged back home to the care of the family and her PCP. Total Time: 40 min . Code: 45605 (>30min.) - Physical Exam Vital Signs: Last Vital Signs Temp 97.6 F 06/06/16 13:23 Pulse 87 06/06/16 13:23 Resp 18 06/06/16 13:23 BP 159/75 06/06/16 13:23 Pulse Ox 100 06/06/16 13:23 Oxygen Pulse Oxygen Saturation 100 O2 Device Room Air Oxygen Flow Rate 2 Fraction of Inspired Oxygen ( FIO2) Constitutional: No apparent distress, Alert Oriented to: Time, Person, Place - HEENT Head: Normal (normocephalic,atraumatic, trachea midline) Eye: Normal (EOMI, Sclera white) Oropharynx: Normal (moist) ENT EAC: Normal TMJ: Normal Nose: No Symptoms Reported (without discharge or bleeding) - Respiratory/Cardiovascular Respiratory: Diminished, Rhonchi. negative: Tachypnea, Wheezes Cardiovascular: Normal, Systolic murmur - GI Auscultation: Normal Palpation: Normal (soft, non distended and nontender) Tenderness: Non tender Rectal Exam: Deferred Stool: Brown - Exam Deferred: Yes - Musculoskeletal Back: Normal Extremities: Normal (normal tone, no cyanosis or edema) - Integumentary Skin: Normal, Warm, Dry Lymphatics: Normal - Neurologic Memory Impaired: Normal Motor Function: Normal Cranial Nerve: Normal Cerebellar: Normal Mood Description: Normal, Anxious Thought: Coherent Perception: Normal - Other Exam Other Exam Findings: Allergies Sulfa (Sulfonamide Antibiotics) [Sulfa(Sulfonamide Antibiotics)] Allergy ( Intermediate, Verified 06/03/16 11:38) Hives* Penicillins Allergy (Verified 06/03/16 11:38) Hives* 06/06/16 05:40 06/06/16 05:40 Abnormal Lab Results 06/05/16 06/06/16 06/06/16 16:22 00:07 05:40 WBC RDW Glucose 146 H POC Capillary Glucose 224 H 153 H 06/06/16 06/06/16 06/06/16 05:40 05:57 12:26 WBC 13.8 H RDW 14.6 H Glucose POC Capillary Glucose 139 H 208 H Last Vital Signs Temp 97.6 F 06/06/16 13:23 Pulse 87 06/06/16 13:23 Resp 18 06/06/16 13:23 BP 159/75 06/06/16 13:23 Pulse Ox 100 06/06/16 13:23 Discharge Home Medication List CloNIDine (Antihypertensive) [Catapres-Tts] 1 patch TOP WEEKLY 06/03/16 [ History Confirmed 06/03/16] Dexlansoprazole [Dexilant] 60 mg PO DAILY 06/03/16 [History Confirmed 06/03/16] Folic Acid/Mv,Fe,Other Min [One Daily For Women Tablet] 1 tab PO DAILY 06/03/16 [History Confirmed 06/03/16] Ipratropium/Albuterol Sulfate [Combivent Respimat Inhal Bitely] 4 gm IH QID PRN # 2 aer.w.adap 06/03/16 [Rx] Guaifenesin [Mucinex] 1,200 mg PO BID #20 tbmp.12hr 06/06/16 [Rx] Levalbuterol Tartrate [Xopenex Hfa] 200 puff IH Q6 #1 hfa.aer.ad 06/06/16 [Rx] Levofloxacin [Levaquin] 750 mg PO DAILY #7 tablet 06/06/16 [Rx] Prednisone 10 mg PO DAILY #30 tab.ds.pk 06/06/16 [Rx] New Discharge Medications (Rx) Ipratropium/Albuterol Sulfate [Combivent Respimat Inhal Bitely] 4 gm IH QID PRN # 2 aer.w.adap 06/03/16 [Rx] Guaifenesin [Mucinex] 1,200 mg PO BID #20 tbmp.12hr 06/06/16 [Rx] Levalbuterol Tartrate [Xopenex Hfa] 200 puff IH Q6 #1 hfa.aer.ad 06/06/16 [Rx] Levofloxacin [Levaquin] 750 mg PO DAILY #7 tablet 06/06/16 [Rx] Prednisone 10 mg PO DAILY #30 tab.ds.pk 06/06/16 [Rx] Home Medications CloNIDine (Antihypertensive) [Catapres-Tts] 1 patch TOP WEEKLY 06/03/16 Dexlansoprazole [Dexilant] 60 mg PO DAILY 06/03/16 Folic Acid/Mv,Fe,Other Min [One Daily For Women Tablet] 1 tab PO DAILY 06/03/16 Ipratropium/Albuterol Sulfate [Combivent Respimat Inhal Bitely] 4 gm IH QID PRN # 2 aer.w.adap 06/03/16 Guaifenesin [Mucinex] 1,200 mg PO BID #20 tbmp.12hr 06/06/16 Levalbuterol Tartrate [Xopenex Hfa] 200 puff IH Q6 #1 hfa.aer.ad 06/06/16 Levofloxacin [Levaquin] 750 mg PO DAILY #7 tablet 06/06/16 Prednisone 10 mg PO DAILY #30 tab.ds.pk 06/06/16 Microbiology 06/03/16 19:43 Nasal Washing/Aspirate Or Swab Influenza Type A Antigen Screen - Final NEGATIVE Please note: A NEGATIVE result does not exclude an influenza virus infection. It is a presumptive result and, if required, confirmation should be done using either a virus culture or an FDA-cleared influenza A&B molecular assay. ("NORMAL" value = "NEGATIVE".) 06/03/16 19:43 Nasal Washing/Aspirate Or Swab Influenza Type B Antigen Screen - Final NEGATIVE Please note: A NEGATIVE result does not exclude an influenza virus infection. It is a presumptive result and, if required, confirmation should be done using either a virus culture or an FDA-cleared influenza A&B molecular assay. ("NORMAL" value = "NEGATIVE".)
[2016-06-10] MEDS ORDERED: CLONIDINE 0.1 MG TOP SCH (09:00)
[2016-06-11] MEDS ORDERED: REMOVE PATCH MAR ALERT SCH (12:30)
== END 2016-06-06 16:45 | disposition home or self-care (01) | DRG 194 ==
LOC: ED 11:27 → PCU 19:47 → MASU 06-05 18:45
PROVIDERS: ADMIT Internal Medicine; ATTEND Internal Medicine
PROC: 039C3ZZ Drainage of Left Radial Artery, Percutaneous Approach (ICD-10-PCS; principal; 2016-06-03)
DX: J18.1 Lobar pneumonia, unspecified organism (principal); J44.0 Chronic obstructive pulmonary disease with (acute) lower respiratory infection; R06.89 Other abnormalities of breathing; I15.8 Other secondary hypertension; J44.1 Chronic obstructive pulmonary disease with (acute) exacerbation; K21.9 Gastro-esophageal reflux disease without esophagitis; Z88.2 Allergy status to sulfonamides; Z88.0 Allergy status to penicillin; Z79.899 Other long term (current) drug therapy; R09.02 Hypoxemia
CPT/HCPCS: 36415; 36600; 71020; 71275; 80048; 80053; 82803; 82962; 83880; 84484; 85025; 85027; 85610; 85730; 87040; 87804; 93005; 94640; 96365; 96366; 96372; 96375; 97161; 98960; 99285; A9698; G0237; J0360; J0456; J0696; J1650; J1940; J2920; J2930; J3490; J7050; J7060; J7070; J7620

== ENCOUNTER 2016-06-12 09:09 | Emergency (ER) | payer MEDICARE, BC ==
[2016-06-12 09:17] VITALS: TEMP 97.8; BMI 26.6
[2016-06-12 09:41] LABS: MPV 7.2 fL (7.4-10.4)
[2016-06-12 09:56] LABS: BLOOD UREA NITROGEN 14 MG/DL (7-17); CALC CORRECTED 9.8 MG/DL (8.4-10.2); CALCIUM 9.7 MG/DL (8.4-10.2); CALCULATED OSMOLALITY 273 MOs/Kg (270-290); CHLORIDE 106 mEq/L (98-107); GLUCOSE 154 MG/DL (70-99); SODIUM LEVEL 140 mEq/L (137-146); TOTAL PROTEIN 6.8 G/DL (6.3-8.2)
--- NOTE | 2016-06-12 10:03 | EDPRACDOC ---
- General Information Chief Complaint: Flu-Like Symptoms Stated Complaint: LEGS SWOLLEN/ CONGESTION Time Seen by Provider: 06/12/16 09:52 Mode Of Arrival: Car Home Medications: Home Medications CloNIDine (Antihypertensive) [Catapres-Tts] 1 patch TOP WEEKLY 06/03/16 Dexlansoprazole [Dexilant] 60 mg PO DAILY 06/03/16 Folic Acid/Mv,Fe,Other Min [One Daily For Women Tablet] 1 tab PO DAILY 06/03/16 Ipratropium/Albuterol Sulfate [Combivent Respimat Inhal [place]] 4 gm IH QID PRN # 2 aer.w.adap 06/03/16 Guaifenesin [Mucinex] 1,200 mg PO BID #20 tbmp.12hr 06/06/16 Levofloxacin [Levaquin] 750 mg PO DAILY #7 tablet 06/06/16 Prednisone 10 mg PO DAILY #30 tab.ds.pk 06/06/16 Albuterol Sulfate Nebs [Proventil, Ventolin] 3 ml NEB Q4-6H PRN #1 box 06/12/16 Levalbuterol Tartrate [Xopenex Hfa] 1 - 2 puff INH Q6 06/12/16 Allergies/Adverse Reactions: Allergies Allergy/AdvReac Type Severity Reaction Status Date / Time Sulfa (Sulfonamide Allergy Intermediate Hives* Verified 06/12/16 12:10 Antibiotics) [Sulfa(Sulfonamide Antibiotics)] Penicillins Allergy Hives* Verified 06/12/16 12:10 - History of Present Illness Onset: LAST WEEK HPI: PT STATES THAT SHE WAS DX WITH PNEUMONIA LAST WEEK, WAS IN THE HOSPITAL, DISCHARGED ON THURSDAY, STATES SHE FEELS WORSE SINCE BEING HOME, STATES HAS WORSENING DYSPNEA ON EXERTION, NON-PROD COUGH, "FEVER", WHEEZING, STATES SHE WAS SENT HOME WITH A NEBULIZER MACHINE BUT NO MEDICINE FOR IT, USING MUCINEX FOR HER COUGH WITHOUT RELIEF. Shortness of Breath: Severe Relevant History: Reports: Other (PNEUMONIA) Cough: Reports: Productive, Yellow Rhinorrhea: Reports: Clear Ear Symptoms: Reports: None SOB Worsens with: Reports: Exertion, Coughing SOB Improves with: Reports: Nothing Recently treated infections:: Reports: Pneumonia Associated Signs and symptoms: Reports: Cough, Fever, Nasal Symptoms ED Past Medical History - History Reviewed Yes Nurses notes reviewed and agree except as marked - Patient Medical History Neurological History: Reports: Cerebrovascular Accident Cardiac History: Reports: Hypertension Respiratory History: Reports: Pneumonia GI/ History: Reports: Kidney Stones Musculoskeletal History: Reports: Gout Psychological History: Denies: Depression Surgical History: Reports: Appendectomy, Tonsillectomy/Adnoidectomy - Social Medical History Smoking Status: Never smoker ETOH: None Substance Abuse: None EDM Review of Systems - Review of Systems Constitutional: Fever. negative: Chills Eyes: negative: Blurred Vision, Double Vision Ears: negative: Drainage, Pain Throat: negative: Pain Nose: Congestion. negative: Discharge Respiratory: Cough, Shortness of Breath, Wheezing Cardiovascular: negative: Chest Pain, Palpitations Gastrointestinal: negative: Diarrhea, Nausea, Pain, Vomiting Genitourinary: negative: Dysuria, Frequency Neurological: negative: Dizziness, Headache, Numbness, Weakness Musculoskeletal: No Symptoms Reported Integumentary: No Symptoms Reported - Physical Exam Constitutional: Alert (Awake), No apparent distress Oriented to: Time, Person, Place Last recorded Vital Signs: Last Vital Signs Temp 97.8 F 06/12/16 09:13 Pulse 86 06/12/16 09:44 Resp 23 06/12/16 09:44 BP 197/90 H 06/12/16 09:44 Pulse Ox 96 06/12/16 09:44 Oxygen Pulse Oxygen Saturation 96 O2 Device Room Air Oxygen Flow Rate Fraction of Inspired Oxygen ( FIO2) - HEENT Head: Normal ( normocephalic) Eye Exam: Normal (PERRL, EOMI, Sclera white) Oropharynx: Normal (Pharynx:Moist without exudate,Gums-no swelling) Tympanic Membrane: Normal ENT EAC: Normal TMJ: Normal Nose: No Symptoms Reported (septum midline) Neck: Normal (FROM, trachea at midline) - Respiratory/Cardiovascular Respiratory: Wheezes. negative: Accessory Muscle Use, Retractions Cardiovascular: Normal (RRR without murmur, gallop or rub) - GI Auscultation: Normal (NABS) Palpation: Normal (Soft,No rebound or guarding, non distended) Tenderness: Non tender Taylor's Sign: Negative - Musculoskeletal Back: Normal (Non-Tender) Extremities: Normal (Normal tone, Pulses 2+ No cyanosis or edema, FROM) - Integumentary Skin: Normal, Warm, Dry Lymphatics: Normal (no adenopathy) - Neurologic Memory Impaired: Normal Motor Function: Normal (Normal tone, Pulses 2+ No cyanosis or edema, FROM) Cranial Nerve: Normal (CN II-X11 intact sensation, strength 5/5) Cerebellar: Normal Mood Description: Normal Perception: Normal ED SOB MDM - Differential Diagnosis Differential Diagnosis: Heart Failure, Pnuemonia, Pneumothorax - Re-evaluation Re-evaluation 1 Re-evaluation Time: 12:02 (CONT TO FEEL SOBR, BUT SOME BETTER) Re-evaluation 2 Re-evaluation Time: 12:56 (STABLE) - Results Result Diagrams: 06/12/16 09:24 06/12/16 09:24 Results: WBC 17.7 xk/uL (3.8-10.8) H 06/12/16 09:24 RBC 5.31 xM/uL (4.20-5.40) 06/12/16 09:24 Hgb 14.6 g/dL (12.0-16.0) D 06/12/16 09:24 Hct 43.9 % (36-47) 06/12/16 09:24 MCV 83 fL (81-99) 06/12/16 09:24 MCH 27.4 pg (27-32) 06/12/16 09:24 MCHC 33.1 g/dl (33-36) 06/12/16 09:24 RDW 15.0 % (11.5-14.5) H 06/12/16 09:24 Plt Count 265 xk/uL (130-400) 06/12/16 09:24 MPV 7.2 fL (7.4-10.4) L 06/12/16 09:24 Sodium 140 mEq/L (137-146) 06/12/16 09:24 Potassium 3.9 mEq/L (3.5-5.1) 06/12/16 09:24 Chloride 106 mEq/L (98-107) 06/12/16 09:24 Carbon Dioxide 22 mMOL/L (22-33) 06/12/16 09:24 Anion Gap 16 mEq/L (8-16) 06/12/16 09:24 BUN 14 MG/DL (7-17) 06/12/16 09:24 Creatinine 0.60 MG/DL (0.52-1.04) 06/12/16 09:24 Estimated GFR (MDRD) > 60 mL/min (>=60) 06/12/16 09:24 Glucose 154 MG/DL (70-99) H 06/12/16 09:24 Calculated Osmolality 273 MOs/Kg (270-290) 06/12/16 09:24 Calcium 9.7 MG/DL (8.4-10.2) 06/12/16 09:24 Corrected Calcium 9.8 MG/DL (8.4-10.2) 06/12/16 09:24 Total Bilirubin 0.5 MG/DL (0.2-1.3) 06/12/16 09:24 AST 20 IU/L (14-36) 06/12/16 09:24 ALT 33 IU/L (9-52) 06/12/16 09:24 Alkaline Phosphatase 67 IU/L (55-165) 06/12/16 09:24 Total Protein 6.8 G/DL (6.3-8.2) 06/12/16 09:24 Albumin 3.9 G/DL (3.5-5.0) 06/12/16 09:24 Lab Results 06/12/16 06/12/16 09:24 09:24 WBC 17.7 H RBC 5.31 Hgb 14.6 D Hct 43.9 MCV 83 MCH 27.4 MCHC 33.1 RDW 15.0 H Plt Count 265 MPV 7.2 L Sodium 140 Potassium 3.9 Chloride 106 Carbon Dioxide 22 Anion Gap 16 BUN 14 Creatinine 0.60 Estimated GFR (MDRD) > 60 Glucose 154 H Calculated Osmolality 273 Calcium 9.7 Corrected Calcium 9.8 Total Bilirubin 0.5 AST 20 ALT 33 Alkaline Phosphatase 67 Total Protein 6.8 Albumin 3.9 - EKG EKG #1 EKG Time: 19:53 -: Yes EKG interpreted by me Rate: bpm: 85 Long Key: Normal Rhythm: NSR Block: None Hypertrophy: None ST: Nonsp Comparison: 11/01/16 (NO CHANGE) - Diagnostic Imaging CXR Image interpreted by: Radiologist Diagnostic Imaging Comments: CHEST - 2 VIEW COMPARISON: 06/03/2014 FINDINGS: Cardiac shadow is within normal limits. The the lungs are well-aerated without focal infiltrate or sizable effusion. A moderate-sized hiatal hernia is again seen. Aortic calcifications are again noted. No other focal abnormality is seen. IMPRESSION: No active disease. Decision Time to Discharge: 12:57 - Departure Disposition: Home Condition: Stable Final Diagnosis: Acute bronchitis Qualifiers: Bronchitis organism: unspecified organism Qualified Code(s): J20.9 - Acute bronchitis, unspecified Instructions: Acute Bronchitis (ED) Education/Counseling Given To: Patient Education/Counseling Given Regarding: Diagnosis, Treatment, Prognosis, Follow Up Referrals: None,No Provider [Primary Care Provider] - One Week Prescriptions: Albuterol Sulfate Nebs [Proventil, Ventolin] 3 ml NEB Q4-6H PRN #1 box PRN Reason: Wheezing Additional Instructions: REST, DRINK PLENTY OF FLUIDS, FINISH PREDNISONE TAPER, RETURN TO THE ED FOR ANY WORSENING SYMPTOMS OR CONCERNS.
[2016-06-12] MEDS ORDERED: Albuterol/Ipratropium Neb 3 ML NEB NEB ONE ×2 (10:04→12:05)
[2016-06-12 10:05] LABS: PARTIAL THROMB. TIME 23.6 SEC (22-35); PT-INR 1.1
[2016-06-12 10:09] LABS: SEG NEUTROPHIL 85 % (45-76)
[2016-06-12 10:19] LABS: ALLEN'S TEST PASS; BEb -1.5 (+/- 2)
[2016-06-12 10:20] LABS: ABG Draw Site Right Radial
[2016-06-12] MEDS ORDERED: TUSSIONEX 5 ML ORAL SYRINGE PO ONE (10:41)
--- NOTE | 2016-06-12 11:13 | DIRPT ---
CLINICAL DATA: Shortness of Breath EXAM: CHEST - 2 VIEW COMPARISON: 06/03/2014 FINDINGS: Cardiac shadow is within normal limits. The the lungs are well-aerated without focal infiltrate or sizable effusion. A moderate-sized hiatal hernia is again seen. Aortic calcifications are again noted. No other focal abnormality is seen. IMPRESSION: No active disease. Electronically Signed By: Chandler Dickey M.D. On: 06/12/2016 11:10
[2016-06-12] MEDS ORDERED: ALBUTEROL 6.7 GM MDI INH ONE (13:14)
[2016-06-12 13:20] VITALS: BP 149/62; PULSE 90
== END 2016-06-12 13:20 | disposition home or self-care (01) ==
LOC: ED 09:09
DX: J20.9 Acute bronchitis, unspecified (principal)
CPT/HCPCS: 36415; 36600; 71020; 80053; 82803; 83880; 84484; 85007; 85027; 85610; 85730; 87040; 93005; 94640; 94664; 99284; A9270; J7620; J3490